=== PATIENT | male | born 2000 | race Caucasian/White ===

== ENCOUNTER 2022-02-16 01:40 | Inpatient (IN) | payer OTHER ==
[~2022-02-16] VITALS: Ht 177.8 cm; Wt 98.0 kg
[2022-02-16 02:32] LABS: HEMATOCRIT 46.9 % (42.0-52.0); MEAN CORPUSCULAR HEMOGLOBIN 30.8 pg (27.0-33.0); MEAN CORPUSCULAR HGB CONC 34.1 g/dl (32.0-36.5); MEAN CORPUSCULAR VOLUME 90.2 fl (80.0-96.0); PLATELET COUNT, AUTOMATED 242 10^3/uL (150-450); WHITE BLOOD COUNT 7.9 10^3/uL (4.0-10.0)
[2022-02-16 02:55] LABS: AMPHETAMINES LEVEL URINE NEGATIVE (NEGATIVE); BARBITURATES URINE NEGATIVE (NEGATIVE); BENZODIAZEPINES URINE NEGATIVE (NEGATIVE); COCAINE METABOLITE URINE NEGATIVE (NEGATIVE); METHADONE URINE NEGATIVE (NEGATIVE)
[2022-02-16 02:56] LABS: CANNABINOIDS URINE NEGATIVE (NEGATIVE); OPIATES URINE NEGATIVE (NEGATIVE); PHENCYCLIDINE URINE NEGATIVE (NEGATIVE)
[2022-02-16 02:58] LABS: ETHYL ALCOHOL (ETHANOL) 0.135 % (0.000-0.010)
[2022-02-16 02:59] LABS: ACETAMINOPHEN LEVEL < 2.0 UG/ML (10.0-20.0); BILIRUBIN,DIRECT 0.1 MG/DL (<0.4)
[2022-02-16 03:00] LABS: ALKALINE PHOSPHATASE 67 U/L (46-116); ALT/SGPT 28 U/L (7.0-40); AST/SGOT 18 U/L (<34); BILIRUBIN,TOTAL 0.3 MG/DL (0.3-1.2); BLOOD UREA NITROGEN 10 MG/DL (9-23); CALCIUM LEVEL 9.2 MG/DL (8.5-10.1); CARBON DIOXIDE LEVEL 21 MMOL/L (20-31); CHLORIDE LEVEL 109 MMOL/L (98-107); CREATININE FOR GFR 0.79 MG/DL (0.70-1.30); GLOMERULAR FILTRATION RATE > 60.0 (>60); GLUCOSE, FASTING 104 MG/DL (60-100); SALICYLATE LEVEL < 3.0 MG/DL (<30); SODIUM LEVEL 142 MMOL/L (136-145); TOTAL PROTEIN 7.3 G/DL (5.7-8.2)
[2022-02-16 03:02] LABS: THYROID STIMULATING HORMONE 1.403 uIU/ML (0.55-4.78)
[2022-02-16 03:06] LABS: RSV AMPLIFICATION NEGATIVE (NEGATIVE)
[2022-02-16] MEDS ORDERED: MAALOX 30 ML SUSP *UDC PO PRN (05:15)
[2022-02-16] MEDS ORDERED: LORazepam 1 MG TAB PO PRN (05:15)
[2022-02-16] MEDS ORDERED: ACETAMINOPHEN TAB 650MG DOSE (2X325MG) PO PRN (05:15)
[2022-02-16] MEDS ORDERED: MOM 30ML SUSPENSION UDC PO PRN (05:15)
[2022-02-16] MEDS ORDERED: traZODone 50 MG TAB PO PRN (05:15)
[2022-02-16] MEDS ORDERED: HOME MED LIST COMPLETE! XX SCH (05:30)
[2022-02-16 05:50] VITALS: BP 118/70
[2022-02-16 06:31] VITALS: BP 140/100
[2022-02-16 14:58] VITALS: BP 149/78
[2022-02-17 07:11] VITALS: BP 132/63
[2022-02-17] MEDS ORDERED: hydrOXYzine 50 MG TAB PO PRN (09:10)
[2022-02-17 19:00] VITALS: BP 142/88
[2022-02-18 06:58] VITALS: BP 130/72
[2022-02-18 17:55] VITALS: BP 125/59
[2022-02-19 07:18] VITALS: BP 123/60
[2022-02-19] MEDS ORDERED: NICOTINE POLACRILEX 2 MG GUM PO PRN (09:30)
[2022-02-19 18:20] VITALS: BP 131/92
[2022-02-20 06:44] VITALS: BP 126/67
[2022-02-20] MEDS ORDERED: NICO2GUM PO (08:29)
== END 2022-02-20 12:51 | disposition home or self-care (01) | DRG 881 ==
LOC: EDBD 01:40 → M ED 01:40 → M ED INP 05:12 → M PSY 05:41
PROVIDERS: ADMIT Student in an Organized Health Care Education/Training Program; ATTEND Student in an Organized Health Care Education/Training Program
DX: F43.21 Adjustment disorder with depressed mood (principal); R45.851 Suicidal ideations; Z63.5 Disruption of family by separation and divorce; Z91.52 Personal history of nonsuicidal self-harm; F17.210 Nicotine dependence, cigarettes, uncomplicated